=== PATIENT | female | born 1995 | race Caucasian/White ===

== ENCOUNTER 2020-04-14 20:05 | Emergency (ER) | payer MEDICAID, SELFPAY ==
[2020-04-14 20:06] VITALS: BP 106/71; PULSE 122; RESP 20; TEMP 35.7; O2SAT 99; BMI 24.0
--- NOTE | 2020-04-14 20:30 | ED.DCSUM_ITS ---
History of Present Illness Chief Complaint: Cough Narrative: This patient is a 24-year-old female who presents with cough and shortness of breath. She complains about 1 week of nonproductive cough. Over the last 3 days she reports fever ranging from 100-104. She also complains of 3 days of muscle aches joint aches and shortness of breath. No sore throat nausea vomiting or diarrhea. She denies any sick contacts with similar symptoms. She has a history of asthma but is on no daily medications. Past Medical History - Allergies and Home Meds Allergies/Adverse Reactions: Allergies acetaminophen [From Tylenol] Adverse Reaction (Verified 04/14/20 20:06) Nausea Primary Care Physician: NOT,DEFINED [NON-STAFF] - Past Medical History: - - Asthma Review of Systems All systems negative except as indicated General: Reports: Fever Eyes: Denies: Visual changes - bilaterally ENT: Denies: Bilateral ear pain Cardiovascular: Denies: Chest pain Respiratory: Reports: Dyspnea, Cough. Denies: Sputum Gastrointestinal: Denies: Nausea, Vomiting, Diarrhea Musculoskeletal: Reports: Myalgias, Arthralgias Skin: Denies: Rash Neurological: Denies: Headache Hematologic: Denies: Easy bruising Allergy: Denies: Uticaria Physical Exam Vital Signs/Narrative: Vital Signs Temp Pulse Resp BP Pulse Ox 04/14/20 20:06 96.3 F L 122 H 20 H 106/71 99 Inital Vital Signs reviewed: Yes General: Well nourished Head: Normocephalic Eyes: EOMI ENT: Moist mucous membranes Neck: Supple Cardiovascular: Regular rhythm, Tachycardia Respiratory: No distress, CTA bilaterally Abdomen: Soft, Nontender, Nondistended Extremities: Nontender Skin: Normal color Neurological: Alert Psychological: Normal affect Diagnostic/Tx/Re-eval Impressions Chest X-Ray 04/14/20 21:14 IMPRESSION: Normal x-ray examination of the chest. Electronically Signed: Veena Gomez MD at 21:54 EDT Tel , Service support , 04/14/20 21:14 Chest PA and Lateral [RAD] Stat Laboratory Results 04/14/20 04/14/20 20:45 20:45 WBC 15.7 H RBC 4.35 Hgb 10.7 L Hct 35.2 L MCV 80.9 L MCH 24.6 L MCHC 30.4 L RDW Std Deviation 51.5 H RDW Coeff of Bina 17.4 H Plt Count 194 MPV 11.3 Immature Gran % (Auto) 0.600 Neut % (Auto) 81.9 H Lymph % (Auto) 9.4 L Dubois % (Auto) 7.5 Eos % (Auto) 0.3 Baso % (Auto) 0.3 Absolute Neuts (auto) 12.8 H Absolute Lymphs (auto) 1.47 Nucleated RBC % 0 Differential Comment SCANNED Sodium 131 L Potassium 5.0 Chloride 100 Carbon Dioxide 25.0 Anion Gap 6 BUN 9 Creatinine 0.79 Estim Creat Clear Calc 99.66 Est GFR (MDRD) Af Amer 115 Est GFR (MDRD) Non-Af 95 BUN/Creatinine Ratio 11.4 Glucose 114 H Calcium 8.9 - Medical Decision Making Patient was treated with IV fluids and Toradol. Diagnostic evaluation as above notable for leukocytosis with a white count of 15.7. Chest x-ray shows no acute process. Patient's presentation is most consistent with a viral syndrome. COVID-19 is considered. Testing was sent. Patient was advised to quarantine. She was advised on signs and symptoms to monitor for and symptoms which should prompt immediate return here to the emergency department for reevaluation and the patient was discharged. ED Disposition - Plan for ED Patient: Disposition: Home or Assisted Living Diagnosis: Viral syndrome, Bronchitis Instructions: Acute Bronchitis Referrals: NOT,DEFINED [NON-STAFF] -
[2020-04-14 20:40] VITALS: BP 106/72; PULSE 100; RESP 15; O2SAT 100
[2020-04-14] MEDS: 0.9% Normal Saline 1,000 ML 1000 ML IV (20:56)
[2020-04-14] MEDS: Ketorolac 30 MG/ML Syringe IV (20:56)
[2020-04-14 21:07] LABS: Absolute Lymphocyte Count 1.47 X10^3/uL (0.83-4.51); Absolute Neutrophil Count 12.8 X10^3/uL (2.0-7.7); Basophil# 0.05 X10^3/uL; Basophil% 0.3 % (0-1); Eosinophil# 0.05 X10^3/uL; Eosinophils% 0.3 % (0-5); Hematocrit 35.2 % (37-47); Hemoglobin 10.7 g/dL (12.0-15.0); Lymphocyte # 1.47 X10^3/ul (4.0); Lymphocyte % 9.4 % (19-41); Mean Corp Hgb Conc 30.4 g/dL (32-36); Mean Corpuscular Hgb 24.6 pg (27.0-32.0); Mean Corpuscular Volume 80.9 fL (81-99); Mean Platelet Vol. 11.3 fl (6.2-12.0); Monocyte# 1.17 X10^3/uL; Monocyte% 7.5 % (0-10); NRBC Flagged by Analyzer 0 % (0-5); Neutrophil # 12.83 X10^3/uL (2.7-7.7); Neutrophil % 81.9 % (47-70); POSITIVE MORPHOLOGY YES; Platelet Count 194 K/mm3 (150-450); RBC Distribution Width CV 17.4 % (11.6-14.6); RBC Distribution Width SD 51.5 fl (35.1-43.9); Red Blood Count 4.35 M/mm3 (4.2-5.4); White Blood Count 15.7 K/mm3 (4.4-11.0)
--- NOTE | 2020-04-14 21:14 | RAD_ITS ---
STUDY: X-RAY CHEST REASON FOR EXAM: Female, 24 years old. COUGH X 1 WEEK, FEVER, SHORTNESS OF BREATH, CHILLS, METTALIC TASTE, DIZZY. TECHNIQUE: PA and lateral views of the chest. COMPARISON: None. FINDINGS: The lungs are clear and expanded. There is no demonstrated pleural abnormality. Normal size heart. Normal mediastinum and wayne. Normal visualized pulmonary arteries. Normal visualized aortic arch and descending thoracic aorta. Normal visualized thoracic spine. Normal visualized ribs, clavicles, and shoulders. There is no demonstrated abnormality of the visualized soft tissue structures of the upper abdomen. RAD/Chest PA and Lateral IMPRESSION: Normal x-ray examination of the chest. Electronically Signed: Veena Gomez MD at 21:54 EDT Tel , Service support ,
[2020-04-14 21:21] LABS: Anion Gap 6 (5-15); BUN 9 mg/dL (7-18); BUN/Creat Ratio 11.4 RATIO (10-20); Calcium,Total 8.9 mg/dL (8.5-10.1); Chloride 100 mmol/L (98-107); Creatinine, Serum 0.79 mg/dL (0.55-1.02); EST Glomerular Filtration Rate 95 mL/min (>60); Est Glom Filt Rate - Afr Amer 115 mL/min (>60); Estimated Creatinine Clearance 99.66 ml/min; Glucose 114 mg/dL (74-106); Sodium Level 131 mmol/L (136-145)
[2020-04-14 21:22] LABS: Differential Indicated SCAN CRITERIA MET
[2020-04-14 21:34] LABS: Differential Comment SCANNED
[2020-04-14 22:41] VITALS: BP 96/68; PULSE 91; RESP 14; O2SAT 98
== END 2020-04-14 22:44 | disposition home or self-care (01) ==
PROVIDERS: Emergency Provider Emergency Medicine
DX: J40 Bronchitis, not specified as acute or chronic (principal); B34.9 Viral infection, unspecified; J45.909 Unspecified asthma, uncomplicated
CPT/HCPCS: 71046; 80048; 85025; 87635; 96361; 96374; 99283; J7030; U0003